=== PATIENT | male | born 1945 | race Caucasian/White ===

== ENCOUNTER 2018-06-08 19:35 | Emergency (ER) | payer BC ==
[~2018-06-08] VITALS: Ht 177.8 cm; Wt 113.4 kg
[~2018-06-08 19:35] MED LIST: ASPIR 8181 MG PO; CENTRUM SILVER1 EAC4 PO; METFORMIN HCL500 MG PO; NORCO 5-325 TA1 EAC1 PO; QUINU10 PD PO; SILVADENE20 GM TP
[2018-06-08] MEDS ORDERED: CLARITIN10 MG PO (20:12)
[2018-06-08 20:28] VITALS: BP 154/79
== END 2018-06-08 20:29 | disposition home or self-care (01) ==
LOC: M.ERS 19:35
DX: R21 Rash and other nonspecific skin eruption (principal); I10 Essential (primary) hypertension; K21.9 Gastro-esophageal reflux disease without esophagitis; Z85.46 Personal history of malignant neoplasm of prostate